=== PATIENT | female | born 1945 | race Caucasian/White ===

== ENCOUNTER → 2020-03-19 13:51 | Outpatient (BNVA) | payer MEDICARE, SELFPAY | PROVIDERS: Family Provider Registered Nurse; PCP Registered Nurse; Visit Provider Registered Nurse | DX: I10 Essential (primary) hypertension (principal); F32.9 Major depressive disorder, single episode, unspecified; E78.5 Hyperlipidemia, unspecified; Z12.31 Encounter for screening mammogram for malignant neoplasm of breast; F32.89 Other specified depressive episodes | CPT/HCPCS: 80053; 80061; 85025 ==

== ENCOUNTER 2020-05-02 14:22 | Outpatient (CLI) | payer MEDICARE, SELFPAY ==
--- NOTE | 2020-05-02 14:15 | USCV_ITS ---
Sarai Rowell Age: 75 Gender: F : 1945 Exam Date: 05/02/2020 14:54 Ordering Phys: Kamila Goodrich MD ([email or web address]) Technologist: Donna Bowling Exam Location: [facility] Indication: CHEST PAIN BP: 156 / 74 HR: 81 Rhythm: Sinus Technical Quality: Adequate MEASUREMENTS (Male / Female) Normal Values 2D ECHO LV Diastolic Diameter PLAX 4.1 cm 4.2 - 5.9 / 3.9 - 5.3 cm LV Systolic Diameter PLAX 2.2 cm LV Chamber Size 3.3 cm IVS Diastolic Thickness 1.0 cm 0.6 - 1.0 / 0.6 - 0.9 cm IVS Systolic Thickness 1.4 cm LVPW Diastolic Thickness 1.1 cm 0.6 - 1.0 / 0.6 - 0.9 cm LVPW Systolic Thickness 2.5 cm RV Chamber Size 1.8 cm LVOT Diameter 2.0 cm LV Ejection Fraction 2D Teich 59.8 % LV Ejection Fraction MOD 2C 75.2 % LV Ejection Fraction 2C AL 76.3 % LA Diameter 3.5 cm LA Width 2.6 cm LA Height 2.6 cm RA Width 1.9 cm RA Height 3.1 cm Aorta at Sinotubular Diameter 2.5 cm M-MODE LV Diastolic Diameter MM 3.4 cm 4.2 - 5.9 / 3.9 - 5.3 cm LV Systolic Diameter MM 2.2 cm LV Ejection Fraction MM Teich 66.3 % IVS Diastolic Thickness MM 0.8 cm 0.6 - 1.0 / 0.6 - 0.9 cm IVS Systolic Thickness MM 1.1 cm LVPW Diastolic Thickness MM 1.2 cm 0.6 - 1.0 / 0.6 - 0.9 cm LVPW Systolic Thickness MM 1.2 cm RV Diastolic Diameter MM 0.6 cm Aortic Annulus Diameter 3.1 cm LA Ao Ratio MM 1.3 MV E Point Septal Separation 0.6 cm DOPPLER AV Peak Velocity 160.0 cm/s LVOT Peak Velocity 142.0 cm/s AV Area Cont Eq vti 2.9 cm squared AV Area Cont Eq pk 2.9 cm squared MV Area PHT 5.1 cm squared Mitral E to A Ratio 0.8 MV E' Velocity 42.5 cm/s Mitral E to MV E' Ratio 9.7 Mitral E to LV E' Lateral Ratio 9.3 Mitral E to LV E' Septal Ratio 10.1 TR Peak Velocity 256.4 cm/s TR Peak Gradient 26.3 mmHg TR Mean Velocity 185.0 cm/s TR Mean Gradient 15.6 mmHg TR Velocity Time Integral 76.2 cm TV Peak E Velocity 59.0 cm/s Right Atrial Pressure 3.0 mmHg Pulmonary Artery Systolic Pressu 29.3 mmHg PV Peak Velocity 75.0 cm/s RV Acceleration Time 0.2 s RV Ejection Time 0.3 s RV AcT/ET 0.5 FINDINGS Left Ventricle Normal left ventricular size and systolic function, EF 66 %. No regional wall motion abnormalities. Grade I/IV diastolic dysfunction (abnormal relaxation filling pattern), normal to mildly elevated filling pressures. Mild left ventricular hypertrophy. Grade I/IV diastolic dysfunction (abnormal relaxation filling pattern), normal to mildly elevated filling pressures. Right Ventricle The right ventricle is normal in size and function. Right Atrium The right atrium is normal in size. Left Atrium The left atrium is normal in size. Mitral Valve No gross abnormalities noted Aortic Valve No gross abnormalities noted Tricuspid Valve Mild tricuspid valve regurgitation. Estimated pulmonary artery peak systolic pressure was 29 mmHg. Pulmonic Valve There is no pulmonic regurgitation. Pericardium Normal pericardium without effusion. Aorta Normal ascending aorta dimension. CONCLUSIONS Normal left ventricular size and systolic function, EF 66 %. No regional wall motion abnormalities. Grade I/IV diastolic dysfunction (abnormal relaxation filling pattern), normal to mildly elevated filling pressures. Mild left ventricular hypertrophy. Grade I/IV diastolic dysfunction (abnormal relaxation filling pattern), normal to mildly elevated filling pressures. Mild tricuspid valve regurgitation. Estimated pulmonary artery peak systolic pressure was 29 mmHg. There is no pericardial effusion. There are no intracardiac masses. No previous study is available for comparison. Dr Kamila Goodrich MD [facility] (Electronically Signed) Final Date: 02 May 2020 16:00 S
== END 2020-05-02 14:23 | disposition home or self-care (01) ==
LOC: US 14:23
PROVIDERS: PCP Registered Nurse; Visit Provider Internal Medicine Cardiovascular Disease
DX: R07.89 Other chest pain (principal); R01.1 Cardiac murmur, unspecified; I07.1 Rheumatic tricuspid insufficiency
CPT/HCPCS: 93306

== ENCOUNTER 2020-05-09 10:02 | Outpatient (CLI) | payer MEDICARE, SELFPAY ==
--- NOTE | 2020-05-09 10:00 | MM_ITS ---
WS: [id number] Bilateral screening digital mammogram, 05/09/2020 Clinical Data: Screening Mammogram Comparison: 11/17/2018, 09/17/2017, 11/23/2015, 03/01/2014, 03/04/2011, 11/06/2008, 11/04/2007. Findings: The breast parenchymal pattern shows heterogeneous density No spiculated masses or clustered calcific ations are seen. There are no secondary signs of carcinoma. There are small lymph nodes in each axill a. MM/[place] [id number] Impression: 1. Negative bilateral mammogram unchanged. 2. Recommend annual screening mammograms. BIRADS: 1-Negative FOLLOW UP: 1 Year Follow-up The CAD report checker was used.
== END 2020-05-09 10:03 | disposition home or self-care (01) ==
PROVIDERS: PCP Registered Nurse; Visit Provider Registered Nurse
DX: Z12.31 Encounter for screening mammogram for malignant neoplasm of breast (principal)
CPT/HCPCS: 77067

== ENCOUNTER 2020-05-14 08:35 | Outpatient (CLI) | payer MEDICARE, SELFPAY ==
[2020-05-14 09:40] VITALS: BMI 28.7
--- NOTE | 2020-05-14 09:46 | ECG_ITS ---
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 Interpretive Statements NAME OF STUDY: EXERCISE SESTAMIBI STRESS TEST INDICATION: Fatigue; Dyspnea on Exertion RESULTS TO EVELYNE ORTEGA PROCEDURE: The baseline electrocardiogram showed normal sinus rhythm with normal ST-Ts possible left atrial conduction abnormalities. At the baseline, the patient's blood pressure was 152/86 mm Hg with a heart rate of 84. The patient exercised for 5 minutes and 19 seconds on a standard Eddy protocol. Patient attained a maximum heart rate of 137 beats per minute(93% of the maximum predicted heart rate) with a blood pressure at the peak exercise of 168/66 mm Hg. The EKG at the peak exercise revealed no significant changes. Patient did not have any chest pain or any significant arrhythmis with the exercise Sestamibi was injected 1 minute prior to the peak exercise During the recovery phase, there were no new changes. Blood pressure at the end of the recovery phase was 179/95 mm Hg with a heart rate of 98 per minute. CONCLUSION: 1. No significant EKG changes with the [treadmill exercise 2. No exercise-induced chest pain or cardiac arrhythmia 3. Slightly impaired exercise tolerance, attained a maximum of 7.0 METs 4. Sestamibi/Sestamibi perfusion results pending; see separate report. Electronically Signed On 05-16-2020 20:43:39 [employer] by Kamila Goodrich M.D. [id number]
--- NOTE | 2020-05-14 09:46 | NMCV_ITS ---
NM shawn perf SPECT r/s* [id number] Sarai Rowell Age: 75 Gender: F : 1945 Exam Date: 05/14/2020 10:30 Ordering Phys: Kamila Goodrich MD ([email or web address]) Technologist: EDELMIRA Martin Exam Location: [facility] Indications: CHEST PAIN STRESS TEST Please see separate stress test report in [facility] for full findings IMAGE PROTOCOL Rest/Stress 1 Exercise Day Radiopharmaceutical Dose (mCi) Administration Site Administered by Rest: Tc-99m 10.2 IV EDELMIRA Alexandre Sestamibi Stress:Tc-99m 32.2 IV EDELMIRA Alexandre Sestamibi Rest: 14-May-2020 60 Discovery 630 Stress: 14-May-2020 30 Discovery 630 Radiopharmaceutical was injected at 86 % maximum heart rate. Images obtained in supine and prone position. SPECT RESULTS Technical Quality: Excellent Raw Data Analysis: Normal Image Corrections: No attenuation or motion correction applied Summed Stress Score: 1 Summed Rest Score: 0 Summed Difference Score: 1 PERFUSION FINDINGS A small area of decreased tracer uptake was noted in the mid inferolateral region, only in the supine position. Uniform tracer uptake was noted in the prone position. Reversibility was noted with respect to these supine imaging. FUNCTIONAL RESULTS (calculated via Gated SPECT) Stress Image LV EF (%): 86 Stress EDV (mL):49 TID: 1.2 Stress ESV (mL):7 FUNCTIONAL FINDINGS: Segmental wall motion analysis revealing no gross wall motion abnormalities. IMPRESSIONS 1. Myocardial perfusion may revealing a small area of inconsistent reversible defect in the inferolateral region, most likely artifactual. The elevated transient ischemic dilatation ratio may suggest endocardial ischemia. Clinical correlation is recommended. 2. Normal LV ejection fraction of 86%. 3. LV wall motion analysis revealing no gross wall motion normalities. 4. Normal LV volume. Revised [id number]/2020 Dr Kamila Goodrich MD [facility] (Electronically Signed) Final Date: 14 May 2020 15:39 Amended: 14 May 2020 15:57 C
--- NOTE | 2020-05-14 11:03 | SUR.PREOP ---
Patient reports no chest pain or discomfort prior to the start of the procedure.
[2020-05-14 11:21] VITALS: BP 179/84; PULSE 73
== END 2020-05-14 08:36 | disposition home or self-care (01) ==
LOC: CDL 08:37
PROVIDERS: PCP Registered Nurse; Visit Provider Internal Medicine Cardiovascular Disease
DX: R06.02 Shortness of breath (principal); R06.00 Dyspnea, unspecified; R53.83 Other fatigue
CPT/HCPCS: 78452; 93017; A9500

== ENCOUNTER 2021-05-06 11:33 | Outpatient (CLI) | payer MEDICARE, SELFPAY ==
--- NOTE | 2021-05-06 11:44 | MM_ITS ---
WS: [id number] BILATERAL DIGITAL DIAGNOSTIC MAMMOGRAM MAMMOGRAPHY WITH CAD CLINICAL INFORMATION: RIGHT BREAST LUMP;NIPPLE PAIN COMPARISON: May 09, 2020 TECHNIQUE: Bilateral CC, MLO, and ML views. FINDINGS: The breasts are composed of heterogeneous fibroglandular density, which can limit the detection of sm all underlying mass lesions. Vascular calcification. Stable punctate and clustered calcifications. St able secretory calcifications. Dense breast tissue deep to the right areola in the area of palpable c oncern. Ultrasound is pending. ULTRASOUND BREAST RIGHT TECHNIQUE: Ultrasound right breast focused area of concern. CLINICAL INFORMATION: RIGHT BREAST LUMP;NIPPLE PAIN COMPARISON: None. FINDINGS: Ultrasound right breast at the areola. In the area of concern as multiple dilated ducts consistent wi th ductal ectasia with some internal debris. No evidence of cystic or solid lesions. No visuali zed intraductal lesions. This is probably benign and recommend 6 month follow-up to confirm stability . MM/[place] [id number] IMPRESSION: BI-RADS: 2-Benign FOLLOW UP: 6 Month Follow-up RECOMMEND 6 MONTH RIGHT DIAGNOSTIC MAMMOGRAPHY AND ULTRASOUND.
== END 2021-05-06 11:34 | disposition home or self-care (01) ==
LOC: RADSHAW 11:41
PROVIDERS: PCP Registered Nurse; Visit Provider Registered Nurse
DX: N63.10 Unspecified lump in the right breast, unspecified quadrant (principal); N64.4 Mastodynia
CPT/HCPCS: 76642; 77066

== ENCOUNTER 2021-10-22 13:16 | Outpatient (CLI) | payer BC, SELFPAY ==
--- NOTE | 2021-10-22 13:28 | MM_ITS ---
WS: [id number] RIGHT 3D TOMOSYNTHESIS DIGITAL MAMMOGRAPHY WITH CAD CLINICAL INFORMATION: RT BREAST LUMP. Six-month follow-up. COMPARISON: May 06, 2021 TECHNIQUE: 5 views of the right breast were obtained. FINDINGS: The right breast is composed of heterogeneous fibroglandular density tissue, which can limit the dete ction of small underlying mass lesions. Vascular calcification. Punctate and lucent centered calcific ations. Dense subareolar RIGHT breast tissue with ductal ectasia is unchanged. ULTRASOUND BREAST RIGHT TECHNIQUE: Ultrasound right breast focused area of concern. CLINICAL INFORMATION: RT BREAST LUMP COMPARISON: May 06, 2021 FINDINGS: Ultrasound RIGHT breast at the areola. Dilated ducts, palpable with benign ductal ectasia as visualiz ed. No intraductal lesions. No cystic or solid lesions to target for biopsy. Recommend return to tamera al screening mammography. MM/[place] [id number] IMPRESSION: BI-RADS: 2-Benign FOLLOW UP: 1 Year Follow-up Recommend return to annual screening mammography.
== END 2021-10-22 13:17 | disposition home or self-care (01) ==
LOC: RAD 13:19
PROVIDERS: PCP Registered Nurse; Visit Provider Registered Nurse
DX: N63.10 Unspecified lump in the right breast, unspecified quadrant (principal)
CPT/HCPCS: 76642; 77061

== ENCOUNTER → 2022-03-07 11:44 | Outpatient (BNVA) | payer BC, SELFPAY | PROVIDERS: PCP Registered Nurse; Visit Provider Registered Nurse | DX: R32 Unspecified urinary incontinence (principal); F32.89 Other specified depressive episodes; N39.42 Incontinence without sensory awareness | CPT/HCPCS: 81000 ==

== ENCOUNTER → 2022-10-01 09:06 | Outpatient (BNVA) | payer BC, SELFPAY | PROVIDERS: PCP Registered Nurse; Visit Provider Registered Nurse | DX: J43.9 Emphysema, unspecified (principal); E53.8 Deficiency of other specified B group vitamins; I10 Essential (primary) hypertension; E55.9 Vitamin D deficiency, unspecified; E78.5 Hyperlipidemia, unspecified; B37.9 Candidiasis, unspecified; J30.2 Other seasonal allergic rhinitis; N32.81 Overactive bladder; F32.89 Other specified depressive episodes; N39.42 Incontinence without sensory awareness; K21.9 Gastro-esophageal reflux disease without esophagitis | CPT/HCPCS: 80053; 80061; 82306; 82607; 85025 ==

== ENCOUNTER 2022-10-14 10:38 | Outpatient (CLI) | payer BC, SELFPAY ==
--- NOTE | 2022-10-14 10:30 | CT_ITS ---
WS: [id number] CT chest wo con [id number] HISTORY: J43.9 - Emphysema, unspecified TECHNIQUE: Axial imaging performed through the thorax. Coronal and sagittal reformats are submitted. All CT scans at [facility] use at least one of these dose optimization techniques: automated exposure control; mA and/or kV adjustment per patient size (includes targeted exams where dose is mat ched to clinical indication); or iterative reconstruction. CONTRAST: None DLP: 244.51 mGy.cm COMPARISON: Chest CT 08/11/2016 Lungs and central airway: Hyperexpanded lungs with chronic emphysema. Peripheral interstitial thicken ing. There is no mass or nodule. Peripheral pleural-based cyst at the lung bases are probably related to emphysema and not honeycombing. Pleura: Normal. No pleural effusion. Heart and pericardium: Normal size heart with no pericardial effusion. Mediastinum and mendez: No mediastinum or hilar adenopathy. Vessels: Mild atherosclerosis aorta. Normal size pulmonary artery. Chest wall and lower neck: No soft tissue masses. Upper abdomen: Suprarenal aortic calcifications. No adrenal mass. Small hiatal hernia. Osseous structures: No destructive process. CT/CT chest wo con [id number] IMPRESSION: 1. Chronic emphysematous changes. No mass or nodules are identified. 2. Mild atherosclerosis aorta. 3. Small hiatal hernia.
== END 2022-10-14 10:39 | disposition home or self-care (01) ==
PROVIDERS: PCP Registered Nurse; Visit Provider Registered Nurse
DX: J43.9 Emphysema, unspecified (principal); K44.9 Diaphragmatic hernia without obstruction or gangrene; I70.0 Atherosclerosis of aorta
CPT/HCPCS: 71250

== ENCOUNTER 2022-11-06 13:17 | Outpatient (CLI) | payer BC, SELFPAY ==
--- NOTE | 2022-11-06 13:26 | MM_ITS ---
WS: [id number] BILATERAL SCREENING DIGITAL TOMOSYNTHESIS MAMMOGRAM WITH CAD HISTORY: SCREENING COMPARISON: 10/22/2021, 05/06/2021 and 05/09/2020 Bilateral CC and MLO views with tomosynthesis and synthetic mammography submitted. Computer aided det ection analyzed. Breast composition: The breasts are heterogeneously dense, which may obscure small masses. No suspici ous masses, microcalcifications or architectural distortion. Benign calcifications. Increased soft ti ssue posterior to the RIGHT nipple has been stable since 2016. MM/[place] [id number] IMPRESSION: BI-RADS: 2-Benign FOLLOW UP: 1 Year Follow-up
== END 2022-11-06 13:18 | disposition home or self-care (01) ==
PROVIDERS: PCP Registered Nurse; Visit Provider Registered Nurse
DX: Z12.31 Encounter for screening mammogram for malignant neoplasm of breast (principal)
CPT/HCPCS: 77063; 77067

== ENCOUNTER 2022-12-03 15:02 | Outpatient (CLI) | payer MEDICARE, SELFPAY ==
--- NOTE | 2022-12-03 15:00 | XR_ITS ---
WS: [id number] SCREENING DEXA SCAN [employer] CLINICAL INFORMATION: Z13.820 - Encounter for screening for osteoporosis COMPARISON: 2019 FINDINGS: The L1-L4 bone mineral density measures 1.187 g/cm2. This corresponds to a T score score of 0.1 and Z score of 1.5. Left femoral neck bone mineral density measures 0.978 g/cm2. This corresponds to a T score of -0.2 an d Z score of 1.3. Right femoral neck bone mineral density measures 0.911 g/cm2. This corresponds to a T score -0.8of an d Z score of 0.8. Mean femoral neck bone mineral density measures 0.944 g/cm2. This corresponds to a T score of -0.5 an d Z score of 1.1. XR/XR DEXA axial skeleton* [id number] IMPRESSION: Normal bone mineralization lumbar spine and femoral necks. Patient's FRAX calculated 10 year probability for major osteoporotic fracture i s 15.9 % and osteoporotic hip fracture is 3.0%. Since 2019, Bone mineral density lumbar spine decreased -2.8% and decreased -1.2% in the fe moral necks.
== END 2022-12-03 15:03 | disposition home or self-care (01) ==
PROVIDERS: PCP Registered Nurse; Visit Provider Registered Nurse
DX: Z13.820 Encounter for screening for osteoporosis (principal)
CPT/HCPCS: 77080

== ENCOUNTER → 2023-01-06 11:04 | Outpatient (BNVA) | payer MEDICARE, SELFPAY | PROVIDERS: PCP Registered Nurse; Visit Provider Surgery | DX: Z80.0 Family history of malignant neoplasm of digestive organs; L29.0 Pruritus ani | CPT/HCPCS: 99203 ==

== ENCOUNTER 2023-02-25 07:33 | Day surgery (SDC) | payer MEDICARE, SELFPAY ==
[2023-02-24 08:31] VITALS: BMI 29.0
[2023-02-25 07:46] VITALS: BP 139/86; PULSE 60; RESP 18; TEMP 36.4; O2SAT 95; BMI 29.0
--- NOTE | 2023-02-25 07:53 | ANES.PREANE2 ---
Pre-Anesthetic Assessment Height/Weight: Height 1.6 m Weight 74.389 kg Temp Pulse Resp BP Pulse Ox O2 Del Method 97.6 F 60 18 139/86 95 Room Air 02/25/23 07:46 02/25/23 07:46 02/25/23 07:46 02/25/23 07:46 02/25/23 07:46 02/25/23 07:46 Preop Diagnosis: screening, family history Operation Date: 02/25/23 08:30 Proposed Procedures p Colonoscopy 17286,Z12.11,Z80.0(Not Applicable) - Win Cobian DO Familial anesthetic complications: none Last intake: Intake Last Liquid Date 02/24/23 Last Liquid Time 22:00 Last Solid Date 02/23/23 Last Solid Time 18:00 Social Alcohol (4-5 drinks per week) and No tobacco Exam alert, oriented x 3, clear to auscultation bilaterally and regular rate & rhythm Airway Submandibular: within normal limits Cervical ROM: within normal limits Mallampati: Class III Dentition: chipped (lower) Pulmonary Chronic Obstructive Pulmonary Disease CV/HEM Hypertension, Murmur (tricuspid regurgitation) and Palpitations None reported Hepatic None reported GI Gastroesophageal Reflux Disease Metabolic Hyperlipidemia [facility] None reported Neuropsych Anxiety and Depression Anesthetic Plan ASA status: 3 Anesthesia: MAC Medications/Allergies Home Medications Medication Instructions Recorded Confirmed Last Taken Type multivitamin,tx-minerals 1 cap PO ONCE 05/23/19 02/24/23 Unknown History (Multi-Vitamin HP/Minerals capsule) nystatin 100,000 unit/gram topical 1 applic topical BID 30 days #30 10/01/22 02/24/23 Unknown Rx ointment grams fluticasone fur. 100 mcg-umeclid See Rx Instructions .Route 11/20/22 02/24/23 Unknown Rx 62.5 mcg-vilant 25 mcg .COMPLEX #60 ea inhalat.powder (Trelegy Ellipta) rosuvastatin 10 mg tablet 10 mg PO DAILY 90 days #90 tabs 01/01/23 02/25/23 02/23/23 Rx cetirizine 10 mg tablet 10 mg PO DAILY 02/24/23 02/25/23 Unknown History esomeprazole magnesium 40 mg 20 mg PO DAILY 02/24/23 02/25/23 02/23/23 History capsule,delayed release lisinopril 40 mg tablet 40 mg PO DAILY 02/24/23 02/25/23 02/23/23 History metoprolol tartrate 25 mg tablet 25 mg PO DAILY 02/24/23 02/25/23 02/23/23 History sertraline 50 mg tablet 50 mg PO DAILY 02/24/23 02/25/23 02/23/23 History Allergies Allergy/AdvReac Type Severity Reaction Status Date / Time No Known Allergies Allergy Verified 02/24/23 08:24 [facility] Anesthesia Medical History (Updated 01/06/23 @ 11:38 by Win Cobian DO) Arthritis Depression EATON (dyspnea on exertion) Dyslipidemia (high LDL; low HDL) Enrolled in chronic care management Essential hypertension Family history of colon cancer Family history of heart disease in male family member before age 55 Heart murmur Tricuspid regurgitation Surgical History (Updated 01/06/23 @ 11:38 by Win Cobian DO) History of breast biopsy History of esophagogastroduodenoscopy (EGD) History of hysterectomy History of oophorectomy Hx of colonoscopy 10 PLUS YEAR AGO Family History Father Hyperlipidemia Hypertension Grandfather Stroke Colon cancer Other CAD (coronary artery disease) Depression Heart disease Social History Smoking and tobacco status: former smoker (1989) Quit status (tobacco): has quit using tobacco Year quit tobacco: 1989 Alcohol intake: current Alcohol intake frequency: holidays/special occasions only Substance/Drug Use: never Adopted: No Caregiver/support person: No Lives independently: Yes Marital status: / Current occupational status: employed Do you think of yourself as: Straight/Heterosexual Current gender identity: Female Elisa/Rastafari: Moravian Agree to transfusion: No Data Anesthesia Cardiac Studies: Echocardiogram Ultrasound 05/02/20 Sestamibi Stress Test (Cardiology) 05/14/20 Holter Monitor 11/05/21
[2023-02-25] MEDS: sodium chloride 0.9% 1,000 ML 30 ML IV (07:55)
--- NOTE | 2023-02-25 08:08 | P.HP_ITS ---
Providers/Chief Complaint Primary Care Provider: CLOTILDE Vieyra Chief Complaint: Z12.11, Z80.0 History of Present Illness Sarai Rowell is a 78 year old female Review of Systems General: Reports: 10 or more systems reviewed and unremarkable except in HPI and below Medications/Allergies Home Medications Medication Instructions Recorded Confirmed Last Taken Type multivitamin,tx-minerals 1 cap PO ONCE 05/23/19 02/24/23 Unknown History (Multi-Vitamin HP/Minerals capsule) nystatin 100,000 unit/gram topical 1 applic topical BID 30 days #30 10/01/22 02/24/23 Unknown Rx ointment grams fluticasone fur. 100 mcg-umeclid See Rx Instructions .Route 11/20/22 02/24/23 Unknown Rx 62.5 mcg-vilant 25 mcg .COMPLEX #60 ea inhalat.powder (Trelegy Ellipta) rosuvastatin 10 mg tablet 10 mg PO DAILY 90 days #90 tabs 01/01/23 02/25/23 02/23/23 Rx cetirizine 10 mg tablet 10 mg PO DAILY 02/24/23 02/25/23 Unknown History esomeprazole magnesium 40 mg 20 mg PO DAILY 02/24/23 02/25/23 02/23/23 History capsule,delayed release lisinopril 40 mg tablet 40 mg PO DAILY 02/24/23 02/25/23 02/23/23 History metoprolol tartrate 25 mg tablet 25 mg PO DAILY 02/24/23 02/25/23 02/23/23 History sertraline 50 mg tablet 50 mg PO DAILY 02/24/23 02/25/23 02/23/23 History Allergies Allergy/AdvReac Type Severity Reaction Status Date / Time No Known Allergies Allergy Verified 02/24/23 08:24 PFSH Acute PFSH: Medical History Arthritis Depression EATON (dyspnea on exertion) Dyslipidemia (high LDL; low HDL) Enrolled in chronic care management Essential hypertension Family history of colon cancer Family history of heart disease in male family member before age 55 Heart murmur Tricuspid regurgitation Surgical History History of breast biopsy History of esophagogastroduodenoscopy (EGD) History of hysterectomy History of oophorectomy Hx of colonoscopy 10 PLUS YEAR AGO Family History Father Hyperlipidemia Hypertension Grandfather Stroke Colon cancer Other CAD (coronary artery disease) Depression Heart disease Social History Smoking and tobacco status: former smoker (1989) Quit status (tobacco): has quit using tobacco Year quit tobacco: 1989 Alcohol intake: current Alcohol intake frequency: holidays/special occasions only Substance/Drug Use: never Adopted: No Caregiver/support person: No Lives independently: Yes Marital status: / Current occupational status: employed Do you think of yourself as: Straight/Heterosexual Current gender identity: Female Elisa/Roman Catholic: Episcopalian Agree to transfusion: No Vitals/I&O/Wt Last Vital Signs Temp 97.6 F 02/25/23 07:46 Pulse 60 02/25/23 07:46 Resp 18 02/25/23 07:46 BP 139/86 02/25/23 07:46 Pulse Ox 95 02/25/23 07:46 O2 Del Method Room Air 02/25/23 07:46 Weight last 48 hrs Weight 164 lb Weight 164 lb A&P Assessment and plan (1) Family history of colon cancer: Plan Colonoscopy Attestations Medical Necessity Statement*: Home Coding Level of Care Code Acute Code for Chg Fwd Diagnoses Family history of colon cancer Z80.0
[2023-02-25 08:40] VITALS: BP 162/88; PULSE 82; RESP 14; TEMP 36.2; O2SAT 97
[2023-02-25 08:50] VITALS: BP 139/76; PULSE 77; RESP 16; O2SAT 97
[2023-02-25 09:00] VITALS: BP 134/72; PULSE 73; RESP 18; O2SAT 100
--- NOTE | 2023-02-25 09:05 | ANE.PACU2 ---
Inpatient post-anesthesia follow up: Airway intact: Yes Vital signs: Temperature 97.1 F Pulse Rate 73 Respiratory Rate 18 Blood Pressure 134/72 Pulse Oximetry 100 Oxygen Delivery Me thod Room Air Oxygen Flow Rate Fraction of Inspir ed Oxygen Hydration adequate: Yes Nausea and vomiting: No Pain level: 1 Mental status: Baseline
[2023-02-26 11:59] LABS: HSV 2 IGG Type Specific AB <0.90 index
== END 2023-02-25 09:15 | disposition home or self-care (01) ==
PROVIDERS: PCP Registered Nurse; Visit Provider Surgery
PROC: 0DJD8ZZ Inspection of Lower Intestinal Tract, Via Natural or Artificial Opening Endoscopic (ICD-10-PCS; CPT 45378; principal; 2023-02-25 08:30)
DX: Z12.11 Encounter for screening for malignant neoplasm of colon (principal); D12.5 Benign neoplasm of sigmoid colon; Z80.0 Family history of malignant neoplasm of digestive organs; M19.90 Unspecified osteoarthritis, unspecified site; I10 Essential (primary) hypertension; E78.5 Hyperlipidemia, unspecified; Z82.49 Family history of ischemic heart disease and other diseases of the circulatory system; Z87.891 Personal history of nicotine dependence; J44.9 Chronic obstructive pulmonary disease, unspecified; K57.30 Diverticulosis of large intestine without perforation or abscess without bleeding; K62.6 Ulcer of anus and rectum
CPT/HCPCS: 36415; 45385; 86695; 86696; 88305; J2704; J7030

== ENCOUNTER → 2023-03-03 15:33 | Outpatient (BNVA) | payer MEDICARE, SELFPAY | PROVIDERS: PCP Registered Nurse; Visit Provider Surgery | DX: Z09 Encounter for follow-up examination after completed treatment for conditions other than malignant neoplasm (principal); L29.0 Pruritus ani; K63.5 Polyp of colon; A60.9 Anogenital herpesviral infection, unspecified | CPT/HCPCS: 99213 ==

== ENCOUNTER → 2023-09-01 15:14 | Outpatient (BNVA) | payer MEDICARE, SELFPAY | PROVIDERS: PCP Registered Nurse; Visit Provider Registered Nurse | DX: A60.9 Anogenital herpesviral infection, unspecified (principal) | CPT/HCPCS: 87255 ==

== ENCOUNTER → 2023-10-07 11:24 | Outpatient (BNVA) | payer MEDICARE, SELFPAY | PROVIDERS: PCP Registered Nurse; Visit Provider Registered Nurse | DX: L98.9 Disorder of the skin and subcutaneous tissue, unspecified (principal) | CPT/HCPCS: 88305 ==

== ENCOUNTER 2024-03-03 11:30 | Outpatient (CLI) | payer MEDICARE, SELFPAY ==
--- NOTE | 2024-03-03 11:33 | MM_ITS ---
WS: [id number] BILATERAL SCREENING DIGITAL TOMOSYNTHESIS MAMMOGRAM WITH CAD HISTORY: SCREENING COMPARISON: 11/06/2022, 10/22/2021, 05/09/2020 Bilateral CC and MLO views with tomosynthesis and synthetic mammography submitted. Computer aided det ection analyzed. Breast composition: The breasts are extremely dense, which lowers the sensitivity of mammography. No suspicious masses, microcalcifications or architectural distortion. Dense areas of scarring portions of the breast bilaterally. Bilateral asymmetries with calcifications. No identifiable interval change . Numerous calcifications. MM/MM [facility] tomosynthesis [id number] IMPRESSION: BI-RADS: 2 - Benign FOLLOW UP: 1 Year Follow-up
== END 2024-03-03 11:31 | disposition home or self-care (01) ==
PROVIDERS: PCP Registered Nurse; Visit Provider Registered Nurse
DX: Z12.31 Encounter for screening mammogram for malignant neoplasm of breast (principal)
CPT/HCPCS: 77063; 77067

== ENCOUNTER → 2024-03-09 08:25 | Outpatient (BNVA) | payer MEDICARE, SELFPAY | PROVIDERS: PCP Registered Nurse; Visit Provider Registered Nurse | DX: N39.0 Urinary tract infection, site not specified (principal) | CPT/HCPCS: 87077; 87086; 87184 ==

== ENCOUNTER → 2024-08-30 10:48 | Outpatient (BNVA) | payer MEDICARE, SELFPAY | PROVIDERS: PCP Registered Nurse; Visit Provider Registered Nurse | DX: I10 Essential (primary) hypertension (principal); F32.A Depression, unspecified | CPT/HCPCS: 80053; 80061; 82306; 82607; 85025 ==

== ENCOUNTER 2024-09-01 12:25 | Outpatient (CLI) | payer MEDICARE, SELFPAY ==
--- NOTE | 2024-09-01 12:32 | XR_ITS ---
WS: [id number] Exam: XR knee LT 3V* [id number] Date/Time of Exam: 09/01/2024 12:35 PM Reason For Exam: M25.562 - Pain in left knee No fracture noted. The joint compartments are relatively well-maintained. No joint effusion. Normal soft tissues. XR/XR knee LT 3V* [id number] IMPRESSION: 1. Normal LEFT knee.
== END 2024-09-01 12:26 | disposition home or self-care (01) ==
PROVIDERS: PCP Registered Nurse; Visit Provider Registered Nurse
DX: M25.562 Pain in left knee (principal)
CPT/HCPCS: 73562

== ENCOUNTER → 2024-09-29 14:16 | Outpatient (BNVA) | payer MEDICARE, SELFPAY | PROVIDERS: PCP Registered Nurse; Visit Provider Nurse Practitioner Family | DX: D23.9 Other benign neoplasm of skin, unspecified (principal); L29.0 Pruritus ani; L82.1 Other seborrheic keratosis; L81.4 Other melanin hyperpigmentation; Z08 Encounter for follow-up examination after completed treatment for malignant neoplasm; Z85.828 Personal history of other malignant neoplasm of skin | CPT/HCPCS: 99204 ==

== ENCOUNTER → 2024-10-27 10:01 | Outpatient (BNVA) | payer MEDICARE, SELFPAY | PROVIDERS: PCP Registered Nurse; Visit Provider Student in an Organized Health Care Education/Training Program | DX: K57.92 Diverticulitis of intestine, part unspecified, without perforation or abscess without bleeding (principal) | CPT/HCPCS: 36415; 85025; 99214 ==

== ENCOUNTER 2024-11-09 16:20 | Outpatient (CLI) | payer MEDICARE, SELFPAY ==
--- NOTE | 2024-11-09 16:30 | CT_ITS ---
WS: [id number] CT ABDOMEN PELVIS TECHNIQUE: Contrast-enhanced CT of the abdomen and pelvis with coronal and sagittal reformatted images. CLINICAL INFORMATION: Diverticulitis COMPARISON: None. DLP: 470.[address] scans at [facility] use at least one of these dose optimization techniques: automated exposure control; mA and/or kV adjustment per patient size (includes targeted exams where dose is matched to clinical indication); or iterative reconstruction. FINDINGS: Fatty liver. Contracted gallbladder. Lung bases are well aerated. Adrenal glands are normal. Normal portal vein and splenic vein. Adrenal glands are normal. Normal spleen. Normal renal parenchymal enhancement. Vascular calcification. Slightly aneurysmal abdominal aorta measuring 2.3 x 2.2 cm. Sigmoid diverticulosis. No evidence of acute diverticulitis. Normal appendix in the RIGHT lower quadrant. Tiny fat-containing umbilical hernia. Mild lumbar curve. Mild disc bulging L3-L4 and L4-L5. CT/CT abdomen pelvis w con* [id number] IMPRESSION: 1. Fatty liver. 2. No evidence of acute diverticulitis. 3. Sigmoid diverticulosis. 4. Normal appendix in the RIGHT lower quadrant. 5. No other acute findings.
[2024-11-09] MEDS: iohexol 350 mg/mL 500 mL Btl (per mL) IV (17:02)
[2024-11-09 17:23] LABS: Blood Urea Nitrogen 15 mg/dL (8-23)
== END 2024-11-09 16:21 | disposition home or self-care (01) ==
PROVIDERS: PCP Registered Nurse; Visit Provider Student in an Organized Health Care Education/Training Program
DX: K57.30 Diverticulosis of large intestine without perforation or abscess without bleeding (principal); K76.0 Fatty (change of) liver, not elsewhere classified; I70.90 Unspecified atherosclerosis; M43.8X6 Other specified deforming dorsopathies, lumbar region; M51.369 Other intervertebral disc degeneration, lumbar region without mention of lumbar back pain or lower extremity pain
CPT/HCPCS: 74177; 82565; 84520

== ENCOUNTER 2024-12-23 10:59 | Outpatient (CLI) | payer MEDICARE, SELFPAY ==
--- NOTE | 2024-12-23 11:13 | MR_ITS ---
WS: [id number] MRI LUMBAR SPINE NONCONTRAST HISTORY: LUMBAR BACK PAIN W/RADICULOPATHY COMPARISON: None available. TECHNIQUE: Sagittal and axial multisequence imaging is submitted. Normal lumbar alignment. Small amount of marrow edema in the LEFT lateral L4 and L5 endplates. No fracture. Disc spaces and vertebral body heights are well-preserved. Conus terminates normally at L1-2 disc level. L1-L2: Mild bilateral facet arthritis. No stenosis. L2-L3: Mild annular disc bulging with ligamentum flavum and facet arthritis. Minimal encroachment upon the subarticular recesses. No significant stenosis. L3-L4: Mild annular disc bulging contacting the traversing L4 nerve roots. Mild ligamentum flavum and facet arthritis. Small amount of fluid in the facet joints. Asymmetric disc bulging to the RIGHT. Mild RIGHT foraminal stenosis. Mild subarticular recess stenosis. L4-L5: Diffuse annular disc bulging with a central to LEFT paracentral disc protrusion contacting and displacing the LEFT traversing L5 nerve root. Mild deformity of the thecal sac. Marked ligamentum flavum hypertrophy and mild facet arthritis. Fluid in the facet joints. Mild disc bulging LEFT foramen. No significant foraminal stenosis. Mild central and subarticular recess stenosis. L5-S1: Mild annular disc bulge with a very shallow central disc protrusion. Bilateral facet arthritis. Fluid in the RIGHT facet joint. Mildly ectatic abdominal aorta. Maximum diameter 2.5 cm. MR/MR lumbar spine wo con* [id number] IMPRESSION: 1. L4-5: Central to LEFT paracentral disc protrusion contacting and displacing the LEFT traversing L5 nerve root. Mild deformity thecal sac. Mild central and subarticular recess stenosis, LEFT greater than RIGHT. 2. L3-4: Annular disc bulging contacting the traversing L4 nerve roots. Mild s ubarticular recess stenosis and RIGHT foraminal stenosis. 3. Multilevel facet joint arthropathy and ligamentum flavum hypertrophy. Most significant at L4-5 and L5-S1.
== END 2024-12-23 11:00 | disposition home or self-care (01) ==
LOC: RAD 11:02
PROVIDERS: PCP Registered Nurse; Visit Provider Internal Medicine
DX: M48.061 Spinal stenosis, lumbar region without neurogenic claudication (principal); M51.16 Intervertebral disc disorders with radiculopathy, lumbar region; M47.897 Other spondylosis, lumbosacral region; M47.896 Other spondylosis, lumbar region; M46.06 Spinal enthesopathy, lumbar region; M46.07 Spinal enthesopathy, lumbosacral region
CPT/HCPCS: 72148

== ENCOUNTER 2025-03-16 10:40 | Outpatient (CLI) | payer MEDICARE, SELFPAY ==
--- NOTE | 2025-03-16 10:45 | MM_ITS ---
WS: [id number] BILATERAL SCREENING DIGITAL TOMOSYNTHESIS MAMMOGRAM WITH CAD HISTORY: SCREENING COMPARISON: 03/03/2024, 11/06/2022, 10/22/2021 Bilateral CC and MLO views with tomosynthesis and synthetic mammography submitted. Computer aided detection analyzed. Breast composition: The breasts are extremely dense, which lowers the sensitivity of mammography. No suspicious masses, microcalcifications or architectural distortion. Scattered calcifications within each breast. No suspicious grouping of calcifications. MM/MM scr tomosynthesis [id number] IMPRESSION: BI-RADS: 2 - Benign FOLLOW UP: 1 Year Follow-up
== END 2025-03-16 10:41 | disposition home or self-care (01) ==
LOC: RAD 10:40
PROVIDERS: PCP Registered Nurse; Visit Provider Registered Nurse
DX: Z12.31 Encounter for screening mammogram for malignant neoplasm of breast (principal); R92.343 Mammographic extreme density, bilateral breasts; R92.1 Mammographic calcification found on diagnostic imaging of breast
CPT/HCPCS: 77063; 77067